=== PATIENT | female | born 1995 | race Caucasian/White ===

== ENCOUNTER 2025-01-14 09:01 | Emergency (ER) | payer OTHER ==
[~2025-01-14] VITALS: Ht 167.6 cm; Wt 81.8 kg
[2025-01-14 10:15] LABS: BASO # 0.0 10^3/uL (0.0-0.2); BASO % 0.6 % (0.0-1.0); EOS # 0.1 10^3/uL (0.0-0.5); EOS % 1.4 % (0.0-3.0); LYMPH # 1.7 10^3/uL (1.5-5.0); LYMPH % 34.0 % (24.0-44.0); MONO # 0.6 10^3/uL (0.0-0.8); MONO % 11.9 % (2.0-8.0); NEUTROPHILS # 2.6 10^3/uL (1.5-8.5); NEUTROPHILS % 51.9 % (36.0-66.0); PLATELET COUNT, AUTOMATED 248 10^3/uL (150-450)
[2025-01-14] MEDS ORDERED: NS (Normal Saline) 0.9% 1,000 ML IV ONE (10:25)
[2025-01-14 11:55] VITALS: BP 132/84; TEMP 98; O2SAT 100
[2025-01-14] MEDS ORDERED: MISO200T83 PO (12:07)
== END 2025-01-14 12:31 | disposition home or self-care (01) ==
LOC: M ED 09:01
DX: O04.6 Delayed or excessive hemorrhage following (induced) termination of pregnancy (principal); Z79.899 Other long term (current) drug therapy